=== PATIENT | female | born 1975 | race Two or more races ===

== ENCOUNTER 2025-01-17 05:49 | Day surgery (SDC) | payer OTHER ==
[2025-01-11 12:37] VITALS: BP 131/87
[~2025-01-17] VITALS: Ht 167.6 cm; Wt 63.5 kg
[2025-01-17] MEDS ORDERED: IBU600 MG PO (08:41)
[2025-01-17] MEDS ORDERED: POVIDONE-IODINE 118 ML BOTT TOP ONE (09:00)
[2025-01-17] MEDS ORDERED: MORPHINE SULFATE 4 MG/ML VIAL IV ONE (12:10)
== END 2025-01-17 14:15 | disposition home or self-care (01) ==
LOC: CIR.AMB 05:49
PROVIDERS: ATTEND Obstetrics & Gynecology Gynecology
DX: N84.0 Polyp of corpus uteri (principal)